=== PATIENT | male | born 1980 | race African-American/Black ===

== ENCOUNTER 2017-01-15 18:20 | Emergency (ER) | payer SELFPAY ==
[~2017-01-15] VITALS: Ht 175.3 cm; Wt 89.5 kg
[2017-01-15 18:36] VITALS: Ht 175.3 cm; Wt 89.5 kg
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
[2017-01-15 19:49] LABS: URINE BLOOD (Dip) POC Negative (NEGATIVE)
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
--- NOTE | 2017-01-15 20:31 | RADRPT ---
PROCEDURE: XR Chest. CLINICAL INDICATION: Chest pain. TECHNIQUE: Single AP portable chest. COMPARISON: None. Chest x-ray FINDINGS: The cardiomediastinal silhouette is within normal limits of size. The lungs are clear without pleur al effusion or focal consolidation. No pneumothorax. The osseous structures and soft tissues are unr emarkable. IMPRESSION: 1. No evidence for active cardiopulmonary disease. RPTAT:AAJJ Rosa Maria Reyes Physician Date Time Electronically viewed and signed by Rosa Maria Reyes Physician on 01/15/2017 20:30 DENITA/
[2017-01-15] MEDS ORDERED: CYCL-319 PO (20:52)
[2017-01-15] MEDS ORDERED: HYDR-906 PO (20:52)
[2017-01-15] MEDS ORDERED: ACET500C5 PO (20:52)
[2017-01-15 21:14] VITALS: BP 144/95; PULSE 76; RESP 16; TEMP 98.3
== END 2017-01-15 21:15 | disposition home or self-care (01) ==
LOC: FTE 18:20
DX: S06.0X0A Concussion without loss of consciousness, initial encounter (principal); S20.219A Contusion of unspecified front wall of thorax, initial encounter; F17.210 Nicotine dependence, cigarettes, uncomplicated; V48.5XXA Car driver injured in noncollision transport accident in traffic accident, initial encounter
CPT/HCPCS: 70450; 71010; 72131; 81003

== ENCOUNTER 2017-11-08 11:35 | Emergency (ER) | END 2017-11-08 15:40 | disposition home or self-care (01) ==